=== PATIENT | female | born 2005 | race American Indian/Alaskan Native ===

== ENCOUNTER 2025-02-08 18:17 | Emergency (ER) | payer MEDICAID, SELFPAY ==
[2025-02-08 18:17] VITALS: BP 127/72; PULSE 125; RESP 26; TEMP 37.2; O2SAT 100
[2025-02-08 18:26] VITALS: PULSE 91; RESP 24; O2SAT 100; BMI 21.7
--- NOTE | 2025-02-08 18:32 | XR_ITS ---
Examination: AP chest single view TECHNIQUE: Sitting portable AP chest single view Date and time: February 08, 2025 1904 hours INDICATIONS: Shortness of breath. FINDINGS: Reduced inspiratory effort. Normal heart size. No pneumonia or pulmonary edema IMPRESSION: No active disease
--- NOTE | 2025-02-08 18:36 | EDNOTE_ITS ---
ED Anxiety RME/HPI General Chief Complaint: Shortness of Breath/Dyspnea Stated Complaint: SOB Time Seen by Provider: 02/08/25 18:32 Arrival date/time: 02/08/25 18:17 Limitations: no limitations RME / HPI RME / HPI narrative: 19-year-old female who is brought in by EMS for reported panic attacks. EMS states that the family called her out to the scene as she was hyperventilating and crying. She has had some stressors in her social life including a recent break-up with a boyfriend and family fighting. There is no known chronic medical conditions. No falls or injuries. Patient is tearful, she is awake, but does not answer questions initially. Related Data Previous Rx's ?Medication ?Instructions ?Recorded albuterol sulfate 90 mcg/actuation 2 puff inhalation Q 6HR PRN 08/07/17 aerosol inhaler (ProAir HFA) WHEEZING #1 inh ibuprofen 400 mg tablet 400 mg PO Q8H PRN pain #30 t abs 09/16/22 albuterol sulfate 90 mcg/actuation 2 puff inhalation Q 6H PRN 02/13/24 aerosol inhaler (Ventolin HFA) shortness of breath or wheezing #8.5 grams Allergies Allergy/AdvReac Type Severity Reaction Status Date / Time No Known Allergies Allergy Verified 02/08/25 20:33 Review of Systems Review of Systems Systems Reviewed: All systems reviewed, normal except as documented ED Exam General Limitations: Present no limitations General appearance: Present alert and in no apparent distress Head Head exam: Present atraumatic Eye Eye exam: Present normal appearance, PERRL and EOMI ENT ENT exam: Present normal exam, normal oropharynx and mucous membranes moist Neck Neck exam: Present normal inspection, full ROM and trachea midline Chest Chest inspection: Present normal inspection and symmetric chest wall rise Respiratory Respiratory exam: Present normal lung sounds bilaterally Cardiovascular Cardiovascular exam: Present regular rate, normal rhythm and normal heart sounds Abdominal Exam Abdominal exam: Present soft and normal bowel sounds Extremities Exam Extremities exam: Present normal inspection and full ROM Back Exam Back exam: Present normal inspection and full ROM Neurological Exam Neurological exam: Present alert and oriented X3 Psychiatric Psychiatric exam: Present anxious Skin Skin exam: Present warm, dry, intact and normal color Course Quality Measures none Orders Category Date Time Status XR chest 1V Stat Exams 02/08/25 18:32 Ordered CBC [CBC] Stat Lab 02/08/25 18:33 Ordered CMP [Comprehensive Metabolic Panel] Stat Lab 02/08/25 18:33 Ordered HCG,Qualitative Serum Stat Lab 02/08/25 18:33 Ordered Troponin I Stat Lab 02/08/25 18:33 Ordered Diazepam Inj [Valium Inj] Med 02/08/25 18:32 Once 2 mg IVP X1 ONE Vital Signs Vital signs: Vital Signs Temperature 99.0 F 02/08/25 18:17 Pulse Rate 125 H 02/08/25 18:17 Respiratory Rate 26 H 02/08/25 18:17 Blood Pressure 127/72 02/08/25 18:17 Pulse Oximetry (%) 100 02/08/25 18:17 Oxygen Delivery Method Oxy Mask 02/08/25 18:17 Oxygen Flow Rate 6 02/08/25 18:17 Anxiety MDM Narrative MDM Narrative: 19-year-old female who is brought in by EMS for reported panic attacks. EMS states that the family called her out to the scene as she was hyperventilating and crying. She has had some stressors in her social life including a recent break-up with a boyfriend and family fighting. There is no known chronic medical conditions. No falls or injuries. Patient is tearful, she is awake, but does not answer questions initially. During the ER course, patient was counseled and coached on deep breathing exercises. Workup was initiated additionally. Patient received 2 separate doses of Valium while here. She had symptomatic improvement and her work of breathing normalized. She is able to speak in clear sentences afterwards. She makes good eye contact during discussion. She states she has seen a therapist in the past but is no longer seeing one. She does have a long history of anxiety. She endorses numerous stressors including a break-up with her boyfriend, anniversary of her father's , and familial conflicts. She denies any thoughts of hurting herself or others. Patient was found to have hypokalemia here. She received 20 mill colons of potassium IV in addition to 20 mill equivalents of oral potassium. I do believe she be discharged from the ER at this time. She is asked to follow-up with her primary doctor for close follow-up. Return here as needed for any worsening emergent changes Patient data External records reviewed:: None Clinical information provided by:: patient, EMS and family Social determinants that could affect healthcare access:: none Patient has the following chronic illnesses:: Anxiety disorder How is presenting disease/condition affected by chronic disease/condition?: exacerbated by Evaluation data The following diagnostics were reviewed and interpreted by me:: lab results (Hypokalemia), radiology exam(s) (Clear expanded lungs any mass or infiltrate) and EKG tracing(s) (Sinus tachycardia with no ST changes or dynamic T waves) Lab and/or radiology exams considered but not ordered:: N/A Interpretation Summary: Hypokalemia Medications / Prescriptions Medications or Prescriptions considered but not ordered:: N/A Medication administrations:: Medication Administration History Diazepam (Diazepam Inj 5 Mg/Ml Vial 2 Ml) 2 mg IVP X1 ONE Stop: 02/08/25 18:33 Consultations Consultation(s) initiated? (list below): No Diagnosis Differential diagnosis anxiety: hyperventilation, panic disorder and acute anxiety Most likely diagnosis given after review of the tests above:: Anxiety, hypokalemia Admission Indicated Admission indicated?: not indicated Admission Request Was there a request for admission?: No Disposition Plan Disposition Plan: Discharge Discharge Attestation Discharge Attestation: The patient and all family members were given an opportunity to ask questions and understood the discharge instructions. Discharge instructions specifically effects, indications for sooner follow up or return to the emergency department, and the expected course of current diagnosis. Patient condition: Stable Discharge Plan Plan Patient Disposition: HOME (Self Care) Patient condition on transfer: Stable Prescriptions/Referrals Prescriptions/Med Rec: No Action albuterol sulfate [ProAir HFA] 8.5 GM HFA aerosol inhaler 2 puff Inhalation Q6HR PRN (Reason: WHEEZING) Qty: 1 0RF Rx Instructions: please give spacer albuterol sulfate [Ventolin HFA] 90 mcg/actuation HFA aerosol inhaler 2 puff inhalation Q6H PRN (Reason: shortness of breath or wheezing) Qty: 8.5 0RF ibuprofen 400 mg tablet 400 mg PO Q8H PRN (Reason: pain) Qty: 30 0RF Referrals: No Primary/Family,Physician [Referring Provider] - In 1 week Problem List Clinical Impression: Panic attack, Acute hypokalemia Patient/Caregiver Discharge Instructions Education Materials: Anxiety Disorders Tx Therapy, ED Hypokalemia Additional Instructions: - It is important that you follow-up with your primary clinic for close follow- up. Consider cognitive behavioral therapy. - Increase potassium rich foods in your diet. - Return here as needed for any worsening or emergent changes. Print Language: Belgian Stand Alone Forms: [facility] Award Info., Patient Portal Info Letter
[2025-02-08] MEDS: DIAZEPAM INJ 5 MG/ML VIAL 2 ML 2 MG IVP (18:43)
[2025-02-08 19:06] LABS: Basophils # (Auto) 0.1 Thou/mm3 (0.0-0.2); Basophils % (Auto) 1 % (0-2.5); Eosinophils # (Auto) 0.1 Thou/mm3 (0.0-0.5); Eosinophils % (Auto) 1 % (0-10); Hematocrit 34.7 % (36.0-46.0); Hemoglobin 11.1 g/dL (12.0-16.0); Immature Granulocytes Auto 0.03 Thou/mm3 (0.00-0.00); Lymphocytes # (Auto) 2.9 Thou/mm3 (1.0-5.0); Lymphocytes % (Auto) 29 % (10-50); Mean Corpuscular HGB Conc 32.0 g/dl (31.0-37.0); Mean Corpuscular Hemoglobin 23.9 pg (25.0-35.0); Mean Corpuscular Volume 75 fL (80-100); Monocytes # (Auto) 0.9 Thou/mm3 (0.0-0.8); Monocytes % (Auto) 9 % (0-12); Neutrophils # (Auto) 6.2 Thou/mm3 (1.8-7.7); Neutrophils % (Auto) 61 % (37-80); Nucleated Red Blood Cell # 0.00 Thou/mm3 (0.00-0.00); Nucleated Red Blood Cell % 0 /100 WBC (0); Platelet Count 363 Thou/mm3 (140-440); RDW Standard Deviation 43.7 fL (36.4-46.3); Red Blood Count 4.65 Miln/mm3 (4.00-5.20); White Blood Count 10.3 Thou/mm3 (4.5-11.0)
[2025-02-08 19:29] LABS: Alanine Aminotransferase 23 U/L (10-49); Albumin, Serum 4.9 gm/dL (3.5-5.0); Albumin/Globulin Ratio 2.0 (1.2-2.2); Alkaline Phosphatase 110 U/L (46-116); Aspartate Amino Transferase 29 U/L (0-34); BUN/Creatinine Ratio 15 Ratio (12-20); Bilirubin,Total 0.8 mg/dL (0.3-1.2); Blood Urea Nitrogen 9 mg/dL (9-23); Calcium 10.5 mg/dL (8.3-10.6); Calcium (Corrected) 10.5 mg/dL (8.5-10.1); Chloride 110 mMol/L (98-107); Creatinine (Component) 0.6 mg/dL (0.6-1.3); Estimated Creatinine Clearance 141.2 mL/min (>60); Globulin 2.5 gm/dL (2.3-3.5); Glucose 100 mg/dL (74-106); Osmolality,Calculated 279 (275-295); Potassium 3.0 mMol/L (3.4-5.1); Sodium 141 mMol/L (136-145); Total Protein 7.4 gm/dL (5.7-8.2); Troponin I < 0.002 ng/mL (0.0-0.045); eGFR > 60 See Note
[2025-02-08] MEDS: DIAZEPAM INJ 5 MG/ML VIAL 2 ML IVP (19:34)
[2025-02-08 19:39] VITALS: BP 115/90; PULSE 100; RESP 40; TEMP 36.7; O2SAT 100
[2025-02-08 19:48] LABS: Anion Gap 16 (7-16); Carbon Dioxide 15.1 mMol/L (20.0-31.0)
[2025-02-08 19:49] LABS: HCG,Qualitative Serum Negative
[2025-02-08] MEDS: POTASSIUM CHL 10 mEq IVPB 10 MEQ/100 ML BAG 100 MEQ IV ×2 (20:25→21:35)
[2025-02-08] MEDS: SODIUM CHLORIDE 0.9% 1000 ML 1,000 ML 999 ML IV (20:28)
[2025-02-08 21:39] LABS: Collection Type, Urine Voided
[2025-02-08 21:45] LABS: Amorphous Crystals,Urine Present (Absent); Bacteria,Urine Rare; Bilirubin,Urine Negative (Negative); Blood,Urine Negative (Negative); Clarity,Urine Turbid (Clear/Hazy); Color,Urine Lt-Yellow (Lt Yel-Yel); Culture Indicated,Urine Not Indicated; Glucose, Urine Negative (Negative); Ketones,Urine 4+ (Negative); Leukocyte Esterase,Urine Positive (Negative); Nitrite,Urine Negative (Negative); PH,Urine 7.0 (5.0-7.0); Protein,Urine Trace (Neg - Trace); RBC,Urine 3 /hpf (0-3); Specific Gravity,Urine 1.028 (1.001-1.035); Squamous Epithelial Cell,Urine 13 /hpf (0-5); Urobilinogen,Urine Negative mg/dL (0.0-1.0); WBC,Urine 5 /hpf (0-5)
[2025-02-08 21:50] LABS: Amphetamine/Methamp Scrn,U Negative (Negative); Barbiturate Screen,Urine Negative (Negative); Benzodiazepines Screen,Urine Positive (Negative); Benzoylecgonine Screen, Ur Negative (Negative); Fentanyl Screen,Urine Negative (Negative); Opiate Screen,Urine Negative (Negative); THC Screen,Urine Positive (Negative)
[2025-02-08 21:51] VITALS: BP 122/73; PULSE 82; RESP 20; TEMP 37.4; O2SAT 99
[2025-02-08 22:38] VITALS: BP 132/67; PULSE 68; RESP 18; TEMP 37.2; O2SAT 98
== END 2025-02-08 22:42 | disposition home or self-care (01) ==
PROVIDERS: Physician Assistant Medical; Emergency Provider Emergency Medicine; PCP Physician Assistant
DX: E87.6 Hypokalemia (principal); F41.0 Panic disorder [episodic paroxysmal anxiety]; R06.02 Shortness of breath
CPT/HCPCS: 36415; 71045; 80053; 80307; 81001; 84484; 84703; 85025; 96361; 96365; 96375; 96376; 99283; J3360; J3480; J7030; A9270

== ENCOUNTER → 2025-03-05 | Outpatient (CLI) | payer MEDICAID, SELFPAY ==
--- NOTE | 2025-03-05 13:29 | XR_ITS ---
Examination: Abdomen sonogram, complete Date and time of exam: March 05, 2025 1419 hours INDICATIONS: Lower abdominal and pelvic pain today. Technique: Multiple real-time grayscale transabdominal sonographic images of the abdomen have been obtained. Findings: Normal gallbladder. Normal common bile duct 0.4 cm Pancreatic head 2.1 cm Aorta not enlarged. Liver 13.7 cm fatty infiltration no focal liver lesions Normal hepatopedal portal venous flow. Patent IVC. Right kidney 10.3 x 3.9 x 4.7 cm cortex 1.7 cm Left kidney 10.5 x 4.5 x 5.1 cm cortex 2.2 cm Spleen 9.0 cm IMPRESSION: Normal gallbladder Fatty infiltration throughout the liver no focal liver lesions
== END | disposition home or self-care (01) ==
PROVIDERS: PCP Nurse Practitioner Family; Referring Provider Nurse Practitioner Family; Visit Provider Nurse Practitioner Family
DX: K76.0 Fatty (change of) liver, not elsewhere classified (principal); Z86.19 Personal history of other infectious and parasitic diseases
CPT/HCPCS: 76700

== ENCOUNTER 2025-03-10 16:22 | Emergency (ER) | payer MEDICAID, SELFPAY ==
[2025-03-10 16:32] VITALS: BP 107/69; PULSE 97; RESP 20; TEMP 37.2; O2SAT 99; BMI 21.8
--- NOTE | 2025-03-10 16:40 | XR_ITS ---
Examination: Pelvic ultrasound, transabdominal, complete Technique: Transabdominal ultrasound of the pelvis performed using grayscale imaging Date and time of exam: March 10, 2025, 1745 hrs. Indications: Onset of pelvic pain today Findings: Uterus 8.6 cm endometrial stripe 1.3 cm. No uterine mass or intrauterine gestation. Right ovary 2.7 cm arterial flow Left ovary 3.0 cm arterial flow Impression: Negative study
--- NOTE | 2025-03-10 16:42 | PD.EDRME ---
Rapid Medical Screening Exam RME Arrival date/time: 03/10/25 16:22 19-year-old female presents to the emergency department today complains of pelvic pain and abdominal pain Chief Complaint: Abdominal Pain Vital signs: Vital Signs Temperature 99 F 03/10/25 16:32 Pulse Rate 97 03/10/25 16:32 Respiratory Rate 20 03/10/25 16:32 Blood Pressure 107/69 03/10/25 16:32 Pulse Oximetry (%) 99 03/10/25 16:32 Oxygen Delivery Method Room Air 03/10/25 16:32
[2025-03-10] MEDS: KETOROLAC INJ 30 MG/ML VIAL IM (16:47)
[2025-03-10 17:10] LABS: Basophils # (Auto) 0.0 Thou/mm3 (0.0-0.2); Basophils % (Auto) 1 % (0-2.5); Eosinophils # (Auto) 0.1 Thou/mm3 (0.0-0.5); Eosinophils % (Auto) 1 % (0-10); Hematocrit 32.6 % (36.0-46.0); Hemoglobin 10.4 g/dL (12.0-16.0); Immature Granulocytes Auto 0.02 Thou/mm3 (0.00-0.00); Lymphocytes # (Auto) 0.4 Thou/mm3 (1.0-5.0); Lymphocytes % (Auto) 6 % (10-50); Mean Corpuscular HGB Conc 31.9 g/dl (31.0-37.0); Mean Corpuscular Hemoglobin 24.2 pg (25.0-35.0); Mean Corpuscular Volume 76 fL (80-100); Monocytes # (Auto) 0.8 Thou/mm3 (0.0-0.8); Monocytes % (Auto) 14 % (0-12); Neutrophils # (Auto) 4.9 Thou/mm3 (1.8-7.7); Neutrophils % (Auto) 78 % (37-80); Nucleated Red Blood Cell # 0.00 Thou/mm3 (0.00-0.00); Nucleated Red Blood Cell % 0 /100 WBC (0); Platelet Count 272 Thou/mm3 (140-440); RDW Standard Deviation 45.1 fL (36.4-46.3); Red Blood Count 4.30 Miln/mm3 (4.00-5.20); White Blood Count 6.2 Thou/mm3 (4.5-11.0)
[2025-03-10 17:37] LABS: Alanine Aminotransferase 13 U/L (10-49); Albumin, Serum 4.5 gm/dL (3.5-5.0); Albumin/Globulin Ratio 2.0 (1.2-2.2); Alkaline Phosphatase 83 U/L (46-116); Anion Gap 9 (7-16); Aspartate Amino Transferase 22 U/L (0-34); BUN/Creatinine Ratio 16 Ratio (12-20); Bilirubin,Total 0.8 mg/dL (0.3-1.2); Blood Urea Nitrogen 8 mg/dL (9-23); Calcium 9.8 mg/dL (8.3-10.6); Calcium (Corrected) 9.8 mg/dL (8.5-10.1); Carbon Dioxide 22.8 mMol/L (20.0-31.0); Chloride 105 mMol/L (98-107); Creatinine (Component) 0.5 mg/dL (0.6-1.3); Estimated Creatinine Clearance 156.3 mL/min (>60); Globulin 2.3 gm/dL (2.3-3.5); Glucose 89 mg/dL (74-106); Lipase 21 U/L (12-53); Osmolality,Calculated 271 (275-295); Potassium 3.8 mMol/L (3.4-5.1); Sodium 137 mMol/L (136-145); Total Protein 6.8 gm/dL (5.7-8.2); eGFR > 60 See Note
[2025-03-10 18:04] LABS: Collection Type, Urine Clean Catch; RBC,Urine 0 /hpf (0-3); WBC,Urine 0 /hpf (0-5)
[2025-03-10 18:22] LABS: Bacteria,Urine Rare; Bilirubin,Urine Negative (Negative); Blood,Urine Negative (Negative); Clarity,Urine Clear (Clear/Hazy); Color,Urine Lt-Yellow (Lt Yel-Yel); Culture Indicated,Urine Not Indicated; Glucose, Urine Negative (Negative); Ketones,Urine 4+ (Negative); Leukocyte Esterase,Urine Negative (Negative); Nitrite,Urine Negative (Negative); PH,Urine 6.0 (5.0-7.0); Protein,Urine Negative (Neg - Trace); Specific Gravity,Urine 1.020 (1.001-1.035); Squamous Epithelial Cell,Urine 6 /hpf (0-5); Urobilinogen,Urine Negative mg/dL (0.0-1.0)
[2025-03-10 18:24] LABS: HCG Qualitative,Urine Negative
--- NOTE | 2025-03-10 19:07 | PD.EDABDPN ---
ED Abdominal Pain RME/HPI General Chief Complaint: Abdominal Pain Stated complaint: BODYACHES, PELVIC PAIN Time seen by provider: 03/10/25 19:07 Arrival date/time: 03/10/25 16:22 RME / HPI RME / HPI narrative: 03/10/25 16:22 19-year-old female presents to the emergency department today complains of pelvic pain and abdominal pain ------- Dr. Velásquez?osmin Main ED Evaluation: 19yo female with ongoing pelvic pain x 2 months described as aching and burning in nature with a sharp component. Pain increased today. Pain radiates to her lower back and worsens when she ambulates and when sitting in an upright position. She has urinary urgency and frequency, but no dysuria. She has nausea, but no vomiting. No fever, chills, or vaginal discharge. LMP 02/14/25. History of menses irregularity. PMH/PSH unremarkable. Social history is negative. Related Data Previous Rx's ?Medication ?Instructions ?Recorded albuterol sulfate 90 mcg/actuation 2 puff inhalation Q6HR PRN 08/07/17 aerosol inhaler (ProAir HFA) WHEEZING #1 inh ibuprofen 400 mg tablet 400 mg PO Q8H PRN pain #30 tabs 09/16/22 albuterol sulfate 90 mcg/actuation 2 puff inhalation Q6H PRN 02/13/24 aerosol inhaler (Ventolin HFA) shortness of breath or wheezing #8.5 grams acetaminophen 300 mg-codeine 15 mg 1 tab PO Q6H PRN pain #10 tabs 03/10/25 tablet metronidazole 500 mg tablet 500 mg PO Q8H #21 tabs 03/10/25 naproxen 250 mg tablet 250 mg PO BID PRN pain #10 tabs 03/10/25 Allergies Allergy/AdvReac Type Severity Reaction Status Date / Time No Known Allergies Allergy Verified 02/08/25 20:33 Review of Systems Review of Systems Systems Reviewed: All systems reviewed, normal except as documented Past Medical History Past Medical History NEUROLOGIC: Negative Neurological Disorders CARDIAC: Negative Cardiac Disorders or Congestive Heart Failure RESPIRATORY: Positive Asthma; Negative Chronic Obstructive Pulmonary Disease (COPD) GENITOURINARY: Negative Renal Disease ENDOCRINE: Negative Diabetes Mellitus Type 1 or Diabetes Mellitus Type 2 PSYCHO/SOCIAL: Positive Anxiety Social History SMOKING STATUS: Never smoker ED Exam Narrative Physical exam: GENERAL APPEARANCE: alert and oriented x 4, well-developed, well-nourished, no acute distress VITALS: All vitals were reviewed and the pulse ox is 99% on room air, which is normal according to my interpretation. 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; copious white-greenish appearing discharge, no cervical motion tenderness, no adnexal masses EXTREMITIES: atraumatic; no edema NEUROLOGIC: awake; alert and oriented x4; cranial nerves II-XII grossly intact; no focal sensory or motor deficits PSYCHIATRIC: appropriate mood and affect SKIN: warm, dry, normal color; no rashes Course Quality Measures none Orders Category Date Time Status US pelvic complete Stat Exams 03/10/25 16:40 Completed CBC Stat Lab 03/10/25 16:56 Completed Comprehensive Metabolic Panel Stat Lab 03/10/25 16:56 Completed HCG Qualitative,Urine Stat Lab 03/10/25 17:55 Completed Lipase Stat Lab 03/10/25 16:56 Completed UA, C/S IF [Urinalysis, C/S if Indicated] Stat Lab 03/10/25 17:55 Completed Azithromycin Po [Zithromax PO] Med 03/10/25 19:48 Discontinued 1,000 mg PO X1 ONE Ketorolac Inj [Toradol Inj] Med 03/10/25 16:40 Discontinued 30 mg IM X1 ONE cefTRIAXone [Rocephin] 250 mg Med 03/10/25 19:48 Discontinued Lidocaine 1% 20 ml [Xylocaine 1% 20 ML] 0.9 ml IM X1 Vital Signs Vital signs: Vital Signs Temperature 99 F 03/10/25 16:32 Pulse Rate 97 03/10/25 16:32 Respiratory Rate 20 03/10/25 16:32 Blood Pressure 107/69 03/10/25 16:32 Pulse Oximetry (%) 99 03/10/25 16:32 Oxygen Delivery Method Room Air 03/10/25 16:32 Abdominal Pain MDM MDM Narrative MDM Narrative:: Scribe Attestation: 03/10/25 - Isaura Montgomery am scribing for and in the presence of Dr. Velásquez. 19yo female with ongoing pelvic pain x 2 months described as aching and burning in nature with a sharp component. Pain increased today. Please see PE findings. Lab markers demonstrate normal WBC count, chronic anemia Hgb 10.4, no thrombocytopenia or left shift. No renal insufficiency. UA demonstrates 4+ ketones, but without signs of infection. Pelvis ultrasound was conducted and is essentially negative. A formal pelvic exam was conducted and demonstrated vaginitis. Pending various studies, patient will be given Rocephin and Azitroamx here and discharged on Flagyl. Dx: vaginitis. Dispo: flagyl x 7 days, naprosyn, follow-up with [facility] for results of cultures, precaution instructions issued. Patient data External records reviewed:: [facility] previous records (Per chart review, patient was seen here on 02/08/25 for acute hyperkalemia.) Clinical information provided by:: patient Social determinants that could affect healthcare access:: none Patient has the following chronic illnesses:: asthma How is presenting disease/condition affected by chronic disease/condition?: uneffected by Evaluation data The following diagnostics were reviewed and interpreted by me:: lab results and radiology exam(s) Lab and/or radiology exams considered but not ordered:: none Interpretation Summary: [facility] Report Signed Patient: GARLAND VERGARA Record#: [id number] Birthdate: 2005 Age/Sex: 19 / F Location: [facility] Attending Dr: Ordering Physician: Shahrzad (HI),Sha DO Date of Service: 03/10/25 Procedure(s): US pelvic complete Accession Number(s): [id number] cc: Gail),Deja SANDOVAL; Shahrzad GONZALEZ),Sha DO; Cory Hilliard MD~ Examination: Pelvic ultrasound, transabdominal, complete Technique: Transabdominal ultrasound of the pelvis performed using grayscale imaging Date and time of exam: March 10, 2025, 1745 hrs. Indications: Onset of pelvic pain today Findings: Uterus 8.6 cm endometrial stripe 1.3 cm. No uterine mass or intrauterine gestation. Right ovary 2.7 cm arterial flow Left ovary 3.0 cm arterial flow Impression: Negative study Dictated By: Cory Hilliard MD Signed By: <Electronically signed by Cory Hilliard MD in OV> 03/10/25 1819 Medications / Prescriptions Medications or Prescriptions considered but not ordered:: none Medication administrations:: Medication Administration History Discontinued Medications Azithromycin (Azithromycin 250 Mg Tablet) 1,000 mg PO X1 ONE Stop: 03/10/25 19:49 Last Admin: 03/10/25 20:02 Dose: 1,000 mg Documented By: SM Ceftriaxone Sodium 250 mg/ (Lidocaine HCl 0.9 ml) 0 mg IM X1 ONE Stop: 03/10/25 19:49 Last Admin: 03/10/25 20:03 Dose: 250 mg Documented By: SM Ketorolac Tromethamine (Ketorolac Inj 30 Mg/Ml Vial) 30 mg IM X1 ONE Stop: 03/10/25 16:41 Last Admin: 03/10/25 16:47 Dose: 30 mg Documented By: OA see above Consultations Consultation(s) initiated? (list below): No Diagnosis Differential diagnosis abdominal pain: other (ovarian cyst, ovarian torsion, gonorrhea, vaginitis, other STI) Most likely diagnosis given after review of the tests above:: see clinical impression below Admission Indicated Admission indicated?: not indicated Admission Request Was there a request for admission?: No Disposition Plan Disposition Plan: Discharge Discharge Attestation Discharge Attestation: The patient and all family members were given an opportunity to ask questions and understood the discharge instructions. Discharge instructions specifically effects, indications for sooner follow up or return to the emergency department, and the expected course of current diagnosis. Patient condition: Stable Discharge Plan Plan Patient Disposition: HOME (Self Care) Prescriptions/Referrals Prescriptions/Med Rec: New metronidazole 500 mg tablet 500 mg PO Q8H Qty: 21 0RF naproxen 250 mg tablet 250 mg PO BID PRN (Reason: pain) Qty: 10 0RF acetaminophen-codeine 300-15 mg tablet 1 tab PO Q6H PRN (Reason: pain) Qty: 10 0RF No Action albuterol sulfate [ProAir HFA] 8.5 GM HFA aerosol inhaler 2 puff Inhalation Q6HR PRN (Reason: WHEEZING) Qty: 1 0RF Rx Instructions: please give spacer albuterol sulfate [Ventolin HFA] 90 mcg/actuation HFA aerosol inhaler 2 puff inhalation Q6H PRN (Reason: shortness of breath or wheezing) Qty: 8.5 0RF ibuprofen 400 mg tablet 400 mg PO Q8H PRN (Reason: pain) Qty: 30 0RF Referrals: Deja Pierce PA-C ([facility]) [Primary Care Provider] - In 1 week Problem List Clinical Impression: Nonspecific vaginitis Patient/Caregiver Discharge Instructions Discharge Activity: activity as tolerated Education Materials: Bacterial Vaginosis Additional Instructions: Avoid pelvic sex for 2 weeks. Follow-up with [facility] physician within 7 to 10 days. Medication as directed. Return for fevers vomiting or worsening pain. Print Language: Kiswahili Stand Alone Forms: [facility] Award Info., Patient Portal Info Letter
[2025-03-10 20:02] VITALS: RESP 18; O2SAT 99
[2025-03-10] MEDS: AZITHROMYCIN 250 MG TABLET 1000 MG PO (20:02)
[2025-03-10] MEDS: cefTRIAXone 250 MG, LIDOCAINE 1% 20 ML 0.9 ML IM (20:03)
[2025-03-10 20:08] VITALS: PULSE 80; RESP 15; O2SAT 99
== END 2025-03-10 20:09 | disposition home or self-care (01) ==
PROVIDERS: Nurse Practitioner Primary Care; Emergency Provider Emergency Medicine; PCP Nurse Practitioner Family
DX: N76.0 Acute vaginitis (principal); D64.9 Anemia, unspecified
CPT/HCPCS: 36415; 76856; 80053; 81001; 81025; 83690; 85025; 87210; 96372; 99283; J0696; J1885; J3490; A9270